=== PATIENT | female | born 1945 | race Caucasian/White ===

== ENCOUNTER 2022-01-01 06:18 | Emergency (ER) | payer OTHER ==
[2022-01-01 08:27] LABS: ESTIMATED GFR 58 mL/min (>60)
[2022-01-01] MEDS ORDERED: Nitrofurantoin Monohydrate/Macrocrystalline 100 MG Cap PO ONE (08:39)
== END 2022-01-01 09:05 | disposition home or self-care (01) ==
LOC: JD.ED 06:18
DX: N30.01 Acute cystitis with hematuria (principal); K21.9 Gastro-esophageal reflux disease without esophagitis; Z88.5 Allergy status to narcotic agent; Z88.0 Allergy status to penicillin; Z91.018 Allergy to other foods; Z79.899 Other long term (current) drug therapy
CPT/HCPCS: 36415; 74019; 80053; 81001; 85025; 86140; 87086; 99283; A9270; 87088; 87186; 99284